=== PATIENT | male | born 1990 | race African-American/Black ===

== ENCOUNTER 2019-09-20 05:42 | Emergency (ER) | payer MEDICAID ==
[2019-09-20 05:47] VITALS: BP 139/90
== END 2019-09-20 07:29 | disposition left against medical advice (07) ==
LOC: ED 05:42
DX: Z53.21 Procedure and treatment not carried out due to patient leaving prior to being seen by health care provider (principal); K08.89 Other specified disorders of teeth and supporting structures
CPT/HCPCS: 99282